=== PATIENT | male | born 1965 | race Caucasian/White ===

== ENCOUNTER 2024-02-02 06:42 | Day surgery (SDC) | payer OTHER ==
[~2024-02-02] VITALS: Ht 180.3 cm; Wt 104.5 kg
[~2024-02-02 06:42] MED LIST: PHENYLEPHRINE 10% OPHTH SOL 5ML OS PRN
[2024-02-02] MEDS: PHENYLEPHRINE 2.5% OPHTH SOL 2ML OS SCH (07:11)
[2024-02-02] MEDS: ATROPINE SULFATE 1% OPHTH SOLN 2ML BTL OS SCH (07:11)
[2024-02-02] MEDS: OFLOXACIN 0.3 % (OCUFLOX) OPTH SOL 5ML OS ONE (07:11)
[2024-02-02] MEDS: LIDOCAINE 3.5 % 1ML OPHTH TOPICAL GEL OU ONE (07:11)
[2024-02-02] MEDS: TROPICAMIDE 1% OPHTH SOLN 15ML OS SCH (07:11)
[2024-02-02] MEDS ORDERED: MIDAZOLAM INJ 2MG/2ML VIAL As Ordered ONE (08:14)
[2024-02-02] MEDS: CEFUROXIME 1MG/0.1ML INTRACAMERAL INJ As Ordered ONE (08:14)
[2024-02-02] MEDS: BSS IRRIG/VANCO(10MG)/TOBRA(5MG)/EPINEPH(1:1000-0.5CC)500ML BAG-ORONLY As Ordered ONE (08:14)
[2024-02-02] MEDS ORDERED: fentaNYL 100 MCG/2 ML INJECTION As Ordered ONE (08:14)
[2024-02-02] MEDS: LIDOCAINE 1% SDV 5ML VIAL As Ordered ONE (08:14)
[2024-02-02 08:23] VITALS: BP 147/73; TEMP 97.6; O2SAT 96
== END 2024-02-02 08:37 | disposition home or self-care (01) ==
LOC: M SDC 06:42
PROVIDERS: ATTEND Ophthalmology
DX: H25.12 Age-related nuclear cataract, left eye (principal)
CPT/HCPCS: 66984; J0697; J2250; J3010; V2632

== ENCOUNTER 2024-03-01 09:45 | Day surgery (SDC) | payer OTHER ==
[~2024-03-01] VITALS: Ht 180.3 cm; Wt 101.7 kg
[~2024-03-01 09:45] MED LIST changes: +BSS IRRIG/VANCO(10MG)/TOBRA(5MG)/EPINEPH(1:1000-0.5CC)500ML BAG-ORONLY As Ordered ONE; +CEFUROXIME 1MG/0.1ML INTRACAMERAL INJ As Ordered ONE; +LIDOCAINE 1% SDV 5ML VIAL As Ordered ONE; +MIDAZOLAM INJ 2MG/2ML VIAL As Ordered ONE; +PHENYLEPHRINE 10% OPHTH SOL 5ML OD PRN; -PHENYLEPHRINE 10% OPHTH SOL 5ML OS PRN; +TROPICAMIDE 1% OPHTH SOLN 15ML OD SCH
[2024-03-01] MEDS: OFLOXACIN 0.3 % (OCUFLOX) OPTH SOL 5ML OD ONE (11:11)
[2024-03-01] MEDS: PHENYLEPHRINE 2.5% OPHTH SOL 2ML OD SCH (11:11)
[2024-03-01] MEDS: ATROPINE SULFATE 1% OPHTH SOLN 2ML BTL OD SCH (11:11)
[2024-03-01] MEDS: LIDOCAINE 3.5 % 1ML OPHTH TOPICAL GEL OU ONE (11:11)
[2024-03-01 12:49] VITALS: BP 130/69; TEMP 97.5; O2SAT 96
== END 2024-03-01 13:00 | disposition home or self-care (01) ==
LOC: M SDC 09:45
PROVIDERS: ATTEND Ophthalmology
DX: H25.11 Age-related nuclear cataract, right eye (principal)
CPT/HCPCS: 66984; J0697; J2250; V2632